=== PATIENT | female | born 1935 | race Native Hawaiian/Other Pacific Islander ===

== ENCOUNTER 2020-04-21 13:10 | Outpatient (CLI) | payer OTHER ==
[2020-04-21 13:36] LABS: PLATELET COUNT 233 K/uL (152-353)
== END 2020-04-21 19:21 | disposition home or self-care (01) ==
LOC: LAB 13:10 → EDBD 13:10 → LAB 19:21
PROVIDERS: ATTEND Nurse Practitioner Family
DX: Z00.00 Encounter for general adult medical examination without abnormal findings (principal); Z79.899 Other long term (current) drug therapy; R53.83 Other fatigue; E07.89 Other specified disorders of thyroid; F03.90 Unspecified dementia, unspecified severity, without behavioral disturbance, psychotic disturbance, mood disturbance, and anxiety; E53.8 Deficiency of other specified B group vitamins; E55.9 Vitamin D deficiency, unspecified
CPT/HCPCS: 80053; 80061; 82306; 82607; 83036; 84439; 84443; 85027